=== PATIENT | male | born 1965 | race Two or more races ===

== ENCOUNTER 2021-01-07 15:22 | Emergency (ER) | payer SELFPAY ==
[~2021-01-07] VITALS: Ht 172.7 cm; Wt 89.0 kg
[2021-01-07] MEDS ORDERED: BACITRACIN ZINC OINT UDPKT TOP ONE (16:00)
[2021-01-07] MEDS ORDERED: TETANUS, DIPHTHERIA, PERTUSSIS VAC/PF 0.5ML (>7YR OLD) IM ONE (16:00)
[2021-01-07] MEDS ORDERED: LIDOCAINE HCL/PF 1% 10 MG/ML 5ML VIAL IJ ONE (16:00)
[2021-01-07 17:01] VITALS: BP 168/91
== END 2021-01-07 17:03 | disposition home or self-care (01) ==
LOC: ER 15:22
DX: S61.411A Laceration without foreign body of right hand, initial encounter (principal); W26.8XXA Contact with other sharp object(s), not elsewhere classified, initial encounter; Y93.89 Activity, other specified; Y92.018 Other place in single-family (private) house as the place of occurrence of the external cause
CPT/HCPCS: 12002; 90471; 90715; 99283; A4217; J3490; Z7610